=== PATIENT | female | born 1980 | race Caucasian/White ===

== ENCOUNTER 2019-12-06 13:13 | Emergency (ER) | payer OTHER ==
[~2019-12-06] VITALS: Ht 167.6 cm; Wt 56.8 kg
[2019-12-06] MEDS ORDERED: IBUP800 PO (15:36)
[2019-12-06] MEDS ORDERED: HYDR1TAB94 PO (15:36)
[2019-12-06] MEDS ORDERED: CRUTCH2 XX (15:38)
== END 2019-12-06 16:49 | disposition home or self-care (01) ==
LOC: ER 13:13
DX: S82.831A Other fracture of upper and lower end of right fibula, initial encounter for closed fracture (principal); Z88.8 Allergy status to other drugs, medicaments and biological substances; Z88.5 Allergy status to narcotic agent; V80.010A Animal-rider injured by fall from or being thrown from horse in noncollision accident, initial encounter; Y93.52 Activity, horseback riding
CPT/HCPCS: 29515; 73610; 99284-25; A9270-GY

== ENCOUNTER 2019-12-13 13:48 | Day surgery (SDC) | payer OTHER ==
[~2019-12-13] VITALS: Ht 142.2 cm; Wt 56.2 kg
[~2019-12-13 13:48] MED LIST: CRUTCH2 XX; HYDR1TAB94 PO; IBUP800 PO
== END 2019-12-13 17:03 | disposition home or self-care (01) ==
LOC: ORSCSDS 13:48
PROVIDERS: Podiatrist Foot & Ankle Surgery
PROC: 0QSJ04Z Reposition Right Fibula with Internal Fixation Device, Open Approach (ICD-10-PCS; principal; 2019-12-13 15:00)
DX: S82.61XA Displaced fracture of lateral malleolus of right fibula, initial encounter for closed fracture (principal); S93.421A Sprain of deltoid ligament of right ankle, initial encounter; F17.210 Nicotine dependence, cigarettes, uncomplicated; J45.909 Unspecified asthma, uncomplicated; E03.9 Hypothyroidism, unspecified; Z79.899 Other long term (current) drug therapy
CPT/HCPCS: C1713; J0171; J0690; J3010; J7120